=== PATIENT | male | born 1935 | race Caucasian/White ===

== ENCOUNTER → 2020-11-14 | Outpatient (CLI) | payer MEDICARE ==
--- NOTE | 2020-11-15 10:58 | CT ---
EXAM DESCRIPTION: Head CLINICAL HISTORY: 85 years Male, MEMORY LOSS, ATAXIA COMPARISON: None. TECHNIQUE: Axial images obtained from the skull base to the vertex without intravenous contrast with images. Coronal and sagittal reformations provided. This exam was performed according to our departmental dose-optimization program, which includes automated exposure control, adjustment of the mA and/or kV according to patient size and/or use of iterative reconstruction technique. Time Last Seen Well (If known) for Code Stroke: n/a FINDINGS: Brain Parenchyma, ventricles, meninges, and extra-axial spaces: Mild general cerebral atrophy. Mild Nonspecific white matter hypodensities in the cerebral hemispheres likely related to ischemic small vessel disease. Possible difficulty differentiating a small acute infarction given these hypodensities. No acute intracranial hemorrhage. No abnormal extra-axial fluid collection. Vascular: Atherosclerosis is within the carotid siphons. Calvarium, paranasal sinuses, mastoids, and orbits: Calvarium intact. Visualized paranasal sinuses and mastoid air cells clear. Orbits unremarkable. IMPRESSION: 1. No acute intracranial abnormality. 2. Senescent changes. Electronically signed by: Babak Norton MD 11/15/2020 10:56 AM [facility]
== END ==
LOC: CT 11:22
PROVIDERS: ATTEND General Practice
DX: R41.3 Other amnesia (principal); R27.0 Ataxia, unspecified; G31.1 Senile degeneration of brain, not elsewhere classified